=== PATIENT | male | born 1990 | race African-American/Black ===

== ENCOUNTER 2021-06-12 18:58 | Emergency (ER) | payer OTHER ==
[~2021-06-12] VITALS: Ht 172.7 cm; Wt 131.5 kg
[2021-06-12 19:16] VITALS: BP 120/74
[2021-06-12] MEDS ORDERED: NAPR-1009 PO (20:18)
--- NOTE | 2021-06-12 20:39 | NUR ---
Patient discharged to home in stable condition. Written and verbal after care instructions given. Patient verbalizes understanding of instruction. Pt ambulatory with a steady gait
== END 2021-06-12 20:40 | disposition home or self-care (01) ==
LOC: ER 19:02
DX: M25.561 Pain in right knee (principal); M54.50 Low back pain, unspecified